=== PATIENT | female | born 1980 | race Caucasian/White ===

== ENCOUNTER 2016-08-09 18:15 | Emergency (ER) | payer OTHER ==
[~2016-08-09] VITALS: Ht 160 cm; Wt 67.7 kg
[~2016-08-09 18:15] MED LIST: BACTRIM,SEPT1 TABLET; BACTROBAN NASAL1 G1 TP; CLEOCIN PH600 MG/4 M; IBUPROFEN100 M1 PO; LOESTRIN 24 FE1 EACH; Motrin PO; PERCOCET 5/31 TABLET PO; PRENATAL TABLE1 EACH PO
[2016-08-09 18:58] LABS: MCH 30.4 PG (29.0-34.0); MCHC 34.2 G/DL (30.0-36.0); MCV 88.7 FL (83-99); MEAN PLAT.VOLUME 10.1 uM^3 (9.5-12.4); PLATELET COUNT 280 K/uL (156-360); RBC DIS.WIDTH-CV 13.2 % (11.8-14.6); RBC DIS.WIDTH-SD 43.2 % (39-53); RED BLOOD COUNT 3.72 M/uL (3.80-5.20); WHITE BLOOD COUNT 8.8 K/uL (4.1-10.2)
[2016-08-09 19:07] LABS: ADD MIUA? YES; BILIRUBIN NEGATIVE; BLOOD LARGE; COLOR STRAW ((YELLOW)); GLUCOSE (STRIP) NEGATIVE; KETONES NEGATIVE; LEUKOCYTES TRACE; NITRITE NEGATIVE; PROTEIN (STRIP) 30; SPECIFIC GRAVITY 1.006 (1.000-1.030); UROBILINOGEN 0.2 MG/DL (0.2-1.0)
[2016-08-09 19:20] LABS: BACTERIA RARE /HPF; EPITHELIAL CELLS RARE /HPF; MUCUS TRACE /LPF; RED BLOOD CELLS 15-20 /HPF (0-5); WHITE BLOOD CELLS 0-5 /HPF (0-5)
[2016-08-09 20:16] VITALS: BP 113/84
== END 2016-08-09 20:17 | disposition home or self-care (01) ==
LOC: EME 18:15
PROVIDERS: Nurse Practitioner Family
DX: O20.9 Hemorrhage in early pregnancy, unspecified (principal); Z3A.12 12 weeks gestation of pregnancy; Z91.040 Latex allergy status; Z88.6 Allergy status to analgesic agent
CPT/HCPCS: 76801; 81003; 84702; 85027; 86900; 86901; 99281; 99284